=== PATIENT | female | born 1950 | race Asian ===

== ENCOUNTER → 2018-02-11 15:18 | Outpatient (CLI) | payer MEDICARE, MEDICAID, SELFPAY | PROVIDERS: Family Provider Family Medicine; PCP Family Medicine; Visit Provider Family Medicine | DX: M81.0 Age-related osteoporosis without current pathological fracture (principal) | CPT/HCPCS: 77080 ==

== ENCOUNTER → 2018-03-05 15:13 | Outpatient (CLI) | payer MEDICARE, MEDICAID, SELFPAY ==
--- NOTE | 2018-03-05 | DI.MG.S_ITS ---
BILATERAL DIGITAL SCREENING MAMMOGRAM 3D/2D WITH CAD: 03/05/2018 CLINICAL: Routine screening. Comparison is made to exams dated: 02/26/2017 mammogram, 02/19/2016 mammogram, and 02/16/2015 mammogram - [facility]. There are scattered fibroglandular elements in both breasts. Current study was also evaluated with a Computer Aided Detection (CAD) system. No significant masses, calcifications, or other findings are seen in either breast. There has been no significant interval change. IMPRESSION: NEGATIVE There is no mammographic evidence of malignancy. A 1 year screening mammogram is recommended. This exam was interpreted at Station ID: [id number]. NOTE: For mammograms, a report in lay terms will be sent to the patient. Approximately 15% of breast malignancies will not be visualized mammographically. In the management of a palpable breast mass, a negative mammogram must not discourage biopsy of a clinically suspicious lesion. Electronically Signed By: Ahmet le/joellen:03/05/2018 16:00:29 letter sent: Normal Exam ACR BI-RADS Category 1: Negative 3341F
== END ==
PROVIDERS: PCP Family Medicine; Visit Provider Family Medicine
DX: Z12.31 Encounter for screening mammogram for malignant neoplasm of breast (principal)
CPT/HCPCS: 77063; 77067

== ENCOUNTER 2018-04-23 08:05 | Day surgery (SDC) | payer MEDICARE, MEDICAID, SELFPAY ==
[2018-04-23] VITALS (10 sets, daily range): BP systolic 100–147; BP diastolic 62–84; PULSE 65–71; RESP 12–16; TEMP 36.3–36.8; O2SAT 94–97; BMI 24.9
--- NOTE | 2018-04-23 | PATH_ITS ---
[facility] Accession Number: [id number] . 01 Material submitted: . POLYP AT 60 . 02 Diagnosis: Colon Polyp at 60 cm: Tubular adenoma. MRV/04/26/2018 . 02 Electronically signed: . Isaiah Carmona MD, PhD, Pathologist NPI- [id number] . 01 Gross description: . Received in one formalin-filled container labeled with the patient's name and labeled polyp at 60, are multiple less than 0.1 cm to 0.2 cm portions of tissue, which are filtered, wrapped, and entirely submitted in one cassette. ([id number]) /FRR . 02 Pathologist provided ICD-10: D12.6 . 02 CPT . 159131 Performed at: 01 [facility] [address] [place] [address], [place], [place] [id number] MD Itz Hayden MD Phone: [phone] Performed at: 02 [facility] [address] [place], [place] [id number] MD Alexys Sanderson MD Phone: [phone]
[2018-04-23] MEDS: SODIUM CHLORIDE 0.9% 1,000 ML 200 ML IV (08:28)
--- NOTE | 2018-04-23 09:06 | PM.HP.1 ---
History of Present Illness Date Patient Seen: 04/23/18 Time Patient Seen: 09:01 Chief complaint: colonoscopy [id number] Narrative: Patient is a woman for screening colonoscopy. This is her 1st colonoscopy. No family history of colon cancer. Patient History Medical History Diabetes mellitus type 2 in obese (Chronic) Essential hypertension (Chronic) Family & Social History Social History: household members family Meds Home Medications Medication Instructions Recorded Confirmed Type Fish Oil 1,000 mg DAILY 04/23/18 04/23/18 History Vitamin D3 25 mcg DAILY 04/23/18 04/23/18 History atorvastatin 10 mg DAILY 04/23/18 04/23/18 History metformin 500 mg 1-2XD 04/23/18 04/23/18 History Allergies Allergy/AdvReac Type Severity Reaction Status Date / Time No Known Drug Allergies Allergy Verified 04/23/18 08:18 Review of Systems Review of Systems All systems reviewed & are unremarkable except as noted in HPI and below Musculoskeletal Comments: Arthritis Exam Vital Signs (past 8 hours): - 04/23/18 08:28 Temperature 97.3 F L Pulse Rate 71 Respiratory Rate 16 Blood Pressure 147/84 H Pulse Oximetry 97 Oxygen Delivery Method Room Air Narrative Exam Narrative: Co Operative woman in no apparent distress. She only speaks [place] dialect. Her daughters translate for her. Appears to be nervous. Her lungs are clear to auscultation without rales or rhonchi. Heart regular rate and rhythm without murmur gallop. Abdomen is protuberant soft nontender without mass. Appears to be alert. Seems to understand a fair amount of Romanian. Assessment & Plan (1) Screening for colon cancer: Current visit: Yes Status: Acute Plan: Assessment/Plan Narrative: Colonoscopy. I discussed the procedure and rationale. Risks of bleeding, perforation which would necessitate a major operation, failure to find removal lesions and the potential to have detached to her colon were discussed. She appears to understand. Agrees to proceed.
[2018-04-23] MEDS: MIDAZOLAM 5 MG/5 ML VIAL IV (09:25)
[2018-04-23] MEDS: fentaNYL 250 MCG/5 ML INJ IV (09:25)
--- NOTE | 2018-04-23 09:37 | PM.OP.ENDO ---
Operative Date/Time/Diagnoses Date of procedure: 04/23/18 Time of procedure: 09:37 Pre-op diagnosis: Screening examination Post-op diagnosis: same (Two polyps 1 at 60 and 1 at 40 cm from the anal verge. Alcantar colonic diverticulosis.) Procedure & Clinicians Study performed: Colonoscopy with cold biopsy Same procedure as scheduled: Yes Indications: Screening exam due to age. This is her 1st colonoscopy. Surgeon: Harley Hall Procedure Notes SCOAP/Timeout: Performed Scope withdrawal time: 13 min Sedation minutes: 22 Findings: diverticulosis (Alcantar colonic) and polyp (two.) Specimen(s): other (Polyps at 60 and 40 cm from the anal verge. Placed in the same container.) Complications: none Recommendations: Colonscopy in 5 years Plan for aftercare: Will send letter Follow up: as needed Disposition: PACU
--- NOTE | 2018-04-23 12:27 | SUR.PHASEII ---
late entry: assumed care of pt, pt on continuous pulse ox through out stay, pt on room air. dressed when ready and left in stable condition.
== END 2018-04-23 11:00 | disposition home or self-care (01) ==
PROVIDERS: PCP Family Medicine; Visit Provider Specialist
PROC: 0DJD8ZZ Inspection of Lower Intestinal Tract, Via Natural or Artificial Opening Endoscopic (ICD-10-PCS; CPT 45378; principal; 2018-04-23 08:45)
DX: Z12.11 Encounter for screening for malignant neoplasm of colon (principal); K57.30 Diverticulosis of large intestine without perforation or abscess without bleeding; E11.9 Type 2 diabetes mellitus without complications; I10 Essential (primary) hypertension; E66.9 Obesity, unspecified; D12.6 Benign neoplasm of colon, unspecified
CPT/HCPCS: 45380; 99152; J2250; J3010

== ENCOUNTER → 2019-03-18 13:12 | Outpatient (CLI) | payer MEDICARE, MEDICAID, SELFPAY ==
--- NOTE | 2019-03-18 | DI.MG.S_ITS ---
BILATERAL DIGITAL SCREENING MAMMOGRAM 3D/2D WITH CAD: 03/18/2019 CLINICAL: Routine screening. Comparison is made to exams dated: 03/05/2018 mammogram, 02/26/2017 mammogram, 02/19/2016 mammogram, 02/16/2015 mammogram, and 02/10/2014 mammogram - [facility]. There are scattered fibroglandular elements in both breasts. Current study was also evaluated with a Computer Aided Detection (CAD) system. No significant masses, calcifications, or other findings are seen in either breast. There has been no significant interval change. IMPRESSION: NEGATIVE There is no mammographic evidence of malignancy. A 1 year screening mammogram is recommended. This exam was interpreted at Station ID: [id number]. NOTE: For mammograms, a report in lay terms will be sent to the patient. Approximately 15% of breast malignancies will not be visualized mammographically. In the management of a palpable breast mass, a negative mammogram must not discourage biopsy of a clinically suspicious lesion. Electronically Signed By: Cm gilman/joellen:03/19/2019 10:19:36 letter sent: Normal Exam ACR BI-RADS Category 1: Negative 3341F
== END ==
PROVIDERS: PCP Family Medicine; Visit Provider Family Medicine
DX: Z12.31 Encounter for screening mammogram for malignant neoplasm of breast (principal)
CPT/HCPCS: 77063; 77067

== ENCOUNTER → 2019-07-29 08:33 | Outpatient (CLI) | payer MEDICARE, MEDICAID, SELFPAY ==
[2019-07-29 09:07] LABS: Hemoglobin A1C% w Est Avg Glu 6.5 % (4.0-6.0)
[2019-07-29 09:19] LABS: Alanine Aminotransferase 24 IU/L (<35); Albumin 4.3 g/dL (3.5-5.0); Albumin Globulin Ratio 1.4 (1.0-2.8); Alkaline Phosphatase 112 U/L (38-126); Aspartate Aminotransferase 34 IU/L (14-36); BUN Creatinine Ratio 21.4 (6-22); Bilirubin Total 0.7 mg/dL (0.2-1.3); Blood Urea Nitrogen 15 mg/dL (7-17); Calcium 9.3 mg/dL (8.4-10.2); Carbon Dioxide 28 mmol/L (22-32); Chloride 105 mmol/L (98-107); Cholesterol 127 mg/dL (140-199); Estimated Glomerular Filt Rate > 60.0 mL/min (>60); Globulin 3.1 g/dL (1.7-4.1); Glucose 115 mg/dL (80-110); HDL Cholesterol 39 mg/dL (40-60); HEMOLYSIS < 15 (0-50); LDL Cholesterol Calculated 67 mg/dL (<100); Potassium 4.4 mmol/L (3.4-5.1); Sodium 141 mmol/L (137-145); Total Protein 7.4 g/dL (6.3-8.2); Triglycerides 104 mg/dL (35-150); VLDL Cholesterol Calculated 21 mg/dL (2-30)
[2019-07-29 10:31] LABS: Creatinine Urine Random 75.4 mg/dL
[2019-07-29 10:34] LABS: Microalbumi Creatinin Ratio Ur 10.6 ug/mg CR (<30); Microalbumin Urine Random 0.8 mg/dL (0-1.6)
== END ==
PROVIDERS: PCP Family Medicine; Visit Provider Family Medicine
DX: E11.9 Type 2 diabetes mellitus without complications (principal)
CPT/HCPCS: 36415; 80053; 80061; 82043; 82570; 83036

== ENCOUNTER → 2020-02-15 12:10 | Outpatient (CLI) | payer MEDICARE, MEDICAID, SELFPAY ==
--- NOTE | 2020-02-15 | DI.RAD.S_ITS ---
This blank DEXA report has been sent in error by the PACS system. The correct and complete report will be forthcoming in 1-2 days. Thank you for your patience and understanding. Dictated by: Kathy King MD, PhD on 02/15/2020 at 15:19 Approved by: Kathy King MD, PhD on 02/15/2020 at 15:19
== END ==
PROVIDERS: PCP Family Medicine; Referring Provider Family Medicine; Visit Provider Family Medicine
DX: M85.852 Other specified disorders of bone density and structure, left thigh (principal); Z78.0 Asymptomatic menopausal state; Z87.891 Personal history of nicotine dependence
CPT/HCPCS: 77080

== ENCOUNTER → 2021-09-15 14:51 | Outpatient (CLI) | payer MEDICARE, MEDICAID, SELFPAY ==
[2021-09-15 16:04] LABS: COVID19 -Nasal RAPID POSITIVE (Negative)
== END ==
PROVIDERS: PCP Family Medicine; Referring Provider Physician Assistant; Visit Provider Physician Assistant
DX: Z20.822 Contact with and (suspected) exposure to COVID-19 (principal)
CPT/HCPCS: 87635

== ENCOUNTER → 2022-03-13 15:00 | Outpatient (CLI) | payer MEDICARE, MEDICAID, SELFPAY ==
--- NOTE | 2022-03-13 | DI.MG.S_ITS ---
BILATERAL DIGITAL SCREENING MAMMOGRAM 3D/2D WITH CAD: 03/13/2022 CLINICAL: Routine screening. Family history of breast cancer. Comparison is made to exams dated: 03/18/2019 mammogram, 03/05/2018 mammogram, and 02/26/2017 mammogram - . There are scattered fibroglandular elements in both breasts. Current study was also evaluated with a Computer Aided Detection (CAD) system. No significant masses, calcifications, or other findings are seen in either breast. There has been no significant interval change. IMPRESSION: NEGATIVE There is no mammographic evidence of malignancy. A 1 year screening mammogram is recommended. This exam was interpreted at Station ID: [id number]. NOTE: For mammograms, a report in lay terms will be sent to the patient. Approximately 15% of breast malignancies will not be visualized mammographically. In the management of a palpable breast mass, a negative mammogram must not discourage biopsy of a clinically suspicious lesion. Electronically Signed By: Paul hendrickson/joellen:03/13/2022 18:40:21 letter sent: Normal Exam ACR BI-RADS Category 1: Negative 3341F
== END ==
PROVIDERS: PCP Family Medicine; Referring Provider Family Medicine; Visit Provider Family Medicine
DX: Z12.31 Encounter for screening mammogram for malignant neoplasm of breast (principal); Z80.3 Family history of malignant neoplasm of breast
CPT/HCPCS: 77063; 77067

== ENCOUNTER → 2022-04-07 10:46 | Outpatient (CLI) | payer MEDICARE, MEDICAID, SELFPAY | PROVIDERS: PCP Family Medicine; Referring Provider Family Medicine; Visit Provider Family Medicine | DX: M81.0 Age-related osteoporosis without current pathological fracture (principal); E78.5 Hyperlipidemia, unspecified; M85.89 Other specified disorders of bone density and structure, multiple sites | CPT/HCPCS: 77080 ==

== ENCOUNTER → 2025-04-08 10:24 | Outpatient (CLI) | payer MEDICARE, MEDICAID, SELFPAY ==
--- NOTE | 2025-04-08 10:26 | DI.MG.S_ITS ---
MM screening mammo BI: 04/08/2025. BI-RADS: 1 CLINICAL: 75-year old female for bilateral screening mammogram. Tyrer-Cuzick lifetime risk of 1.7%. No personal or first-degree family history of breast cancer. PRIOR EXAMS 03/13/2022, 03/18/2019, 03/05/2018, 02/26/2017. MAMMOGRAPHY TECHNIQUE: 2D and 3D (tomosynthesis) digital mammographic views obtained, with additional images as needed for full coverage. Current study was also evaluated with a Computer Aided Detection (CAD) system. DENSITY A. The breasts are almost entirely fatty. MAMMOGRAPHY FINDINGS Bilateral: No suspicious mass, asymmetry, microcalcification, or other abnormality seen. IMPRESSION: * No evidence of malignancy. RECOMMENDATIONS Bilateral * Annual screening mammography. OVERALL ASSESSMENT CATEGORY BI-RADS-1: Negative. The [employer] recommends annual screening mammography beginning at age 40 for women with average risk of breast cancer. ELECTRONICALLY SIGNED: Paul Ludwig M.D. on 04/10/2025 at 06:53:25 AM PT Interpreting Station ID: [id number]
== END ==
LOC: MAMMO 10:25
PROVIDERS: PCP Family Medicine; Referring Provider Family Medicine; Visit Provider Family Medicine
DX: Z12.31 Encounter for screening mammogram for malignant neoplasm of breast (principal); R92.313 Mammographic fatty tissue density, bilateral breasts
CPT/HCPCS: 77063; 77067

== ENCOUNTER → 2025-04-14 10:20 | Outpatient (CLI) | payer MEDICARE, MEDICAID, SELFPAY ==
--- NOTE | 2025-04-14 10:25 | DI.RAD.S_ITS ---
PROCEDURE: XR DEXA AXIAL SKELETON INDICATIONS: OSTEOPENIA COMPARISON: [facility], , XR DEXA AXIAL SKELETON, 04/07/2022, 11:17. FINDINGS: Lumbar Spine: Bone mineral density 0.859 (previously 0.874) g/cm2, T score -2.0 (previously-1.9). Left Femoral Neck: Bone mineral density 0.556 (previously 0.581) g/cm2, T score -2.6 (previously-2.4). Left Hip: Bone mineral density (previously 0.779) g/cm2, T score -1.3 (previously-1.3). Fracture Risk Calculation (when applicable): 10-year fracture risk of a major osteoporotic fracture 10 percent and of a hip fracture 3.2 percent. IMPRESSION: Osteoporosis Follow-up guidelines as follows: Osteoporosis: Consider a repeat DEXA and Vertebral Fracture Assessment (VFA) exam in 2 years or sooner if medically necessary, to reassess this patient's status. Osteopenia: Consider a repeat DEXA in 2-3 years to reassess this patient's status, or if there is a new clinical indication. Normal: Consider a repeat DEXA in 5 years or sooner, or if there is a new clinical indication. All treatment decisions require clinical judgment and consideration of individual patient factors, including patient preferences, comorbidities, previous drug use, risk factors not captured in the FRAX model (e.g., frailty, falls, vitamin D deficiency, increased bone turnover, interval significant decline in bone density ) and possible under- or over-estimation of fracture risk by FRAX. In addition, the NOF Guide recommends that FDA-approved medical therapies be considered in postmenopausal women and men age >= 50 years with a: * Hip or vertebral (clinical or morphometric) fracture * T-score of <=-2.5 at the spine or hip * Ten-year fracture probability by FRAX of >= 3% for hip fracture or >=20% for major osteoporotic fracture. Dictated by: Reyes Price M.D. on 04/17/2025 at 10:23 Approved by: Reyes Price M.D. on 04/17/2025 at 10:33
== END ==
PROVIDERS: PCP Family Medicine; Referring Provider Family Medicine; Visit Provider Family Medicine
DX: M81.0 Age-related osteoporosis without current pathological fracture (principal)
CPT/HCPCS: 77080